=== PATIENT | male | born 1975 | race Caucasian/White ===

== ENCOUNTER 2022-01-11 17:27 | Emergency (ER) | payer OTHER, MEDICARE, MEDICAID ==
[2022-01-11] MEDS ORDERED: Diphtheria,Pertussis(Acell),Tetanus Vaccine 0.5 ML Syringe IM ONE (18:40)
[2022-01-11] MEDS ORDERED: Bacitracin Oint 1 GM U/D Packet TOP ONE (18:45)
== END 2022-01-11 19:13 | disposition home or self-care (01) ==
LOC: JP.ED 17:27
DX: S80.02XA Contusion of left knee, initial encounter (principal); Z79.899 Other long term (current) drug therapy; Z23 Encounter for immunization; V18.0XXA Pedal cycle driver injured in noncollision transport accident in nontraffic accident, initial encounter; Y92.410 Unspecified street and highway as the place of occurrence of the external cause
CPT/HCPCS: 90471; 90715; 99283-25

== ENCOUNTER 2023-06-14 12:38 | Day surgery (SDC) | payer MEDICARE, MEDICAID ==
[2023-06-14] MEDS ORDERED: Sodium Chloride 0.9% 10 ML Syringe FLUSH PRN (13:01)
[2023-06-14] MEDS ORDERED: Ondansetron 4 MG/2 ML SDV IV PRN (13:01)
[2023-06-14] MEDS ORDERED: Acetaminophen 325 MG Tab PO PRN (13:01)
[2023-06-14 13:15] LABS: BASOPHILS ABSOLUTE AUTO 0.03 K/uL (0.00-0.10); BASOPHILS PERCENT AUTO 0.5 % (0.1-1.3); EOSINOPHILS ABSOLUTE AUTO 0.08 K/uL (0.00-0.40); EOSINOPHILS PERCENT AUTO 1.4 % (0.0-5.4); HEMATOCRIT 32.9 % (38.4-49.7); HEMOGLOBIN 10.9 g/dL (12.9-16.9); IMMATURE GRAN PERCENT AUTO 0.2 % (0.0-0.7); LYMPHOCYTES ABSOLUTE AUTO 1.12 K/uL (0.8-3.3); LYMPHOCYTES PERCENT AUTO 20.3 % (11.4-47.7); MEAN CORPUSCULAR HEMOGLOBIN 32.4 pg (31.6-35.5); MEAN CORPUSCULAR HGB CONC 33.1 g/dL (31.6-35.5); MEAN CORPUSCULAR VOLUME 97.9 fL (81.4-99.0); MONOCYTES ABSOLUTE AUTO 0.34 K/uL (0.20-0.90); MONOCYTES PERCENT AUTO 6.2 % (3.3-12.6); NEUTROPHILS ABSOLUTE AUTO 3.94 K/uL (1.0-7.6); NEUTROPHILS PERCENT AUTO 71.4 % (40.0-78.1); PLATELET COUNT,PLT 141 K/uL (130-375); RED BLOOD CELL COUNT 3.36 M/uL (4.14-5.76); WHITE BLOOD CELL COUNT,WBC 5.5 K/uL (3.2-11.0)
[2023-06-14 13:16] LABS: IMMATURE GRAN ABSOLUTE AUTO 0.01 K/uL (0.00-0.23)
[2023-06-14 13:29] LABS: ANION GAP 6.2 mmol/L (5.0-14.0); CALCIUM 8.3 mg/dL (8.5-10.1); EST CRCL DRUG DOSING (CG) 89.06 mL/min; POTASSIUM,K 3.7 mmol/L (3.6-5.2)
[2023-06-14] MEDS: Bisacodyl 5 MG Tab PO ONE ×2 (13:55→17:00)
[2023-06-14] MEDS ORDERED: risperiDONE 0.5 MG Tab PO PRN (14:18)
[2023-06-14] MEDS: Amphetamine/Dextroamphetamine Salts 10 MG Tab PO SCH (15:03)
[2023-06-14] MEDS: Polyethylene Glycol 3350 Powder 238 GM Bot PO ONE (15:03)
[2023-06-14 17:43] LABS: CORONAVIRUS COVID-19 NAA NEGATIVE (NEGATIVE); INFLUENZA A NAA NEGATIVE (NEGATIVE); INFLUENZA B NAA NEGATIVE (NEGATIVE); RESPIRATORY SYNCYTIAL VIR NAA NEGATIVE (NEGATIVE)
[2023-06-14] MEDS: Sodium Chloride 0.9% 1,000 ML IV SCH (18:38)
[2023-06-14] MEDS: Lactulose Soln 10 GM/15 ML 15 ML UD Cup PO SCH (19:59)
[2023-06-14] MEDS: risperiDONE 0.5 MG Tab PO SCH (19:59)
[2023-06-15 06:53] LABS: ANION GAP 5.4 mmol/L (5.0-14.0); CREATININE 0.9 mg/dL (0.8-1.3); EST CRCL DRUG DOSING (CG) 98.95 mL/min; POTASSIUM,K 3.7 mmol/L (3.6-5.2)
[2023-06-15] MEDS: Levothyroxine 50 MCG Tab PO SCH (09:09)
[2023-06-15] MEDS: FLUoxetine 20 MG Cap PO SCH (09:09)
[2023-06-15] MEDS ORDERED: fentaNYL 100 MCG/2 ML SDV ONE (11:03)
[2023-06-15] MEDS ORDERED: Propofol 200 MG/20 ML SDV ONE (11:03)
== END 2023-06-15 14:17 | disposition home or self-care (01) ==
LOC: JP.ICU 12:38 → JP.SDS 12:38
PROVIDERS: ATTEND Hospitalist
DX: Z12.11 Encounter for screening for malignant neoplasm of colon (principal); F32.A Depression, unspecified; Z79.899 Other long term (current) drug therapy; Z79.890 Hormone replacement therapy; Z98.890 Other specified postprocedural states
CPT/HCPCS: 0241U; 36415; 80048; 85025; 99221; 99238; A9270; G0121; J2704; J3010; J7030